=== PATIENT | female | born 1980 | race Caucasian/White ===

== ENCOUNTER 2017-05-12 13:12 | Emergency (ER) | payer OTHER ==
[~2017-05-12] VITALS: Ht 157.5 cm; Wt 68.5 kg
[2017-05-12 13:18] VITALS: BP 124/69
== END 2017-05-12 15:05 | disposition home or self-care (01) ==
LOC: ED 13:12
DX: M54.6 Pain in thoracic spine (principal)
CPT/HCPCS: J1885